=== PATIENT | male | born 1970 | race Caucasian/White ===

== ENCOUNTER → 2017-08-01 | Outpatient (CLI) | payer BC ==
[~2017-08-01] MED LIST: ASPIRIN325 MG PO; BACTRIM,SEPT1 TABLET PO; CHERATUSSIN AC473 ML PO; FUROSEMIDE20 MG PO; K-DUR20 MEQ PO; KLOR-CON M2020 MEQ PO; LEVOFLOXACIN750 MG PO; LITE COAT ASPI325 M1 PO; PRAVASTATIN SOD40 MG PO
[2017-08-01 08:00] LABS: HEMATOCRIT 46.2 % (38.0-50.0); HEMOGLOBIN 15.8 G/DL (12.5-16.6); MCH 30.8 PG (29.0-34.0); MCHC 34.2 G/DL (30.0-36.0); MCV 90.1 FL (86-99); PLATELET COUNT 120 K/uL (156-360); RBC DIS.WIDTH-CV 13.2 % (11.8-14.6); RBC DIS.WIDTH-SD 43.5 % (39-53); RED BLOOD COUNT 5.13 M/uL (4.00-5.50); WHITE BLOOD COUNT 3.7 K/uL (4.1-10.2)
[2017-08-01 08:05] LABS: INTER. NORMALIZED RATIO 1.1
[2017-08-01 08:07] LABS: PTT 32.7 SEC (25-37)
== END | disposition home or self-care (01) ==
LOC: OPR 07:24 → EDSTATUS 09:00
PROVIDERS: Internal Medicine
DX: K74.60 Unspecified cirrhosis of liver (principal); D69.6 Thrombocytopenia, unspecified; R74.0 Nonspecific elevation of levels of transaminase and lactic acid dehydrogenase [LDH]; Z80.0 Family history of malignant neoplasm of digestive organs
CPT/HCPCS: 77012; 85027; 85610; 85730; 88307; 88313; J3010